=== PATIENT | male | born 1980 | race Caucasian/White ===

== ENCOUNTER → 2023-06-24 10:57 | Outpatient (CLI) | payer OTHER, SELFPAY ==
--- NOTE | 2023-06-24 10:58 | DI.RAD.S_ITS ---
PROCEDURE: XR THORACIC SPINE 3V INDICATIONS: chronic pain, tender L side T10 spinal process and transvers TECHNIQUE: 3 views of the thoracic spine were acquired. COMPARISON: [facility], CR, XR LUMBAR SPINE 6V W BENDING, 06/24/2023, 10:59. FINDINGS: Bones: No fractures or dislocations. No suspicious bony lesions. Tiny vertebral body osteophytes. 12 pairs of ribs are noted, and appear intact where visualized. Soft tissues: No paravertebral stripe thickening. IMPRESSION: Minimal degenerative change. Dictated by: Filipe Haynes M.D. on 06/24/2023 at 12:48 Approved by: Filipe Haynes M.D. on 06/24/2023 at 12:50
--- NOTE | 2023-06-24 10:58 | DI.RAD.S_ITS ---
PROCEDURE: XR LUMBAR SPINE 6V W BENDING INDICATIONS: new lateral foot paresthesias with back extension, r/o listh TECHNIQUE: 7 views of the lumbar spine acquired, including flexion and extension views. COMPARISON: None. FINDINGS: Bones: 5 nonrib-bearing vertebrae are present. There is normal bony alignment. Vertebral body osteophyte at L5. No vertebral body compression fractures. No suspicious bony lesions. Soft tissues: Overlying bowel gas pattern is normal. No suspicious soft tissue calcifications. Flexion/extension: There is normal range of motion, with preserved normal alignment. IMPRESSION: Minimal degenerative change. Dictated by: Filipe Haynes M.D. on 06/24/2023 at 12:45 Approved by: Filipe Haynes M.D. on 06/24/2023 at 12:48
== END ==
PROVIDERS: PCP Family Medicine; Referring Provider Family Medicine; Visit Provider Family Medicine
DX: R20.2 Paresthesia of skin (principal); M54.6 Pain in thoracic spine; G89.29 Other chronic pain
CPT/HCPCS: 72072; 72114